=== PATIENT | female | born 1995 | race American Indian/Alaskan Native ===

== ENCOUNTER 2021-07-29 09:52 | Emergency (ER) | payer OTHER ==
--- NOTE | 2021-07-29 10:50 | Emergency Department Report ---
ED Female HPI - General Chief complaint: Urogenital-Female Stated complaint: UTI SX Time Seen by Provider: 07/29/21 10:35 Source: patient Mode of arrival: Ambulatory Limitations: No Limitations - History of Present Illness Initial comments: 25 year old female presents to ED with complaints of vag bleeding, vaginal swelling and itching, and lower abd cramps. Patient states that she was seen at [facility] 2 weeks ago because she was having some low abdominal cramping. It was at that time she found out that she was . She states that they did do a pelvic exam, and checked her for chlamydia and gonorrhea. She states that the only thing they told her was that she had a UTI and that via ultrasound showed about 4 weeks . Patient states that she has completed a course of Keflex but now she noticed that she has been having pain mainly around her clitoris, it feels swollen and now is itchy. She states that she has a clear white discharge. She also reports that she started with bleeding last night mainly when she wipes after urinating. She states that she did put on 1 pad, but there was no blood on the pad. She reports mild lower abdominal cramping. She states that she has not had any sexual intercourse since she was initially evaluated at [facility] 2 weeks ago. She has the same sexual partner. Last menstrual cycle was June 16, 2022. She is G5, P3 Ab1. She states that she is scheduled to see OB for the first time on Saturday but she does not recall the name of the provider she will be seen. MD Complaint: vaginal bleeding, other (clitorus pain/itching and swelling; about 6 weeks preg) -: week(s) (2) - Related Data Previous Rx's Medication Instructions Recorded Last Taken Type Ferrous Sulfate [Ferrous Sulfate 324 mg PO DAILY #30 tab 07/29/21 Unknown Rx 324 MG] Allergies Allergy/AdvReac Type Severity Reaction Status Date / Time No Known Allergies Allergy Unverified 07/29/21 10:16 ED Review of Systems ROS: Stated complaint: UTI SX Other details as noted in HPI Comment: All other systems reviewed and negative Constitutional: denies: chills, diaphoresis, fever, malaise, weakness Eyes: denies: eye pain, eye discharge, vision change ENT: denies: ear pain, throat pain Respiratory: denies: cough, shortness of breath, wheezing Cardiovascular: denies: chest pain, palpitations Gastrointestinal: abdominal pain, other (Abnormal vaginal bleeding). denies: nausea, vomiting, diarrhea, constipation, hematemesis, melena, hematochezia Genitourinary: discharge, other (Clitoral swelling, itching and painful). denies: urgency, dysuria, frequency, hematuria, abnormal menses, dyspareunia Musculoskeletal: denies: back pain, joint swelling, arthralgia Skin: denies: rash, lesions, change in color, change in hair/nails Neurological: denies: headache, weakness, numbness, paresthesias, confusion, abnormal gait, vertigo Psychiatric: denies: anxiety, depression, auditory hallucinations, visual hallucinations, homicidal thoughts Hematological/Lymphatic: denies: easy bleeding, easy bruising, swollen glands ED Past Medical Hx - Past Medical History Previous Medical History?: Yes Additional medical history: Vaginql delivery x 3 - Surgical History Past Surgical History?: No - Medications Home Medications: Home Medications Medication Instructions Recorded Confirmed Last Taken Type Ferrous Sulfate [Ferrous Sulfate 324 mg PO DAILY #30 tab 07/29/21 Unknown Rx 324 MG] ED Physical Exam - General Limitations: No Limitations General appearance: alert, in no apparent distress - Head Head exam: Present: atraumatic, normocephalic, normal inspection - Eye Eye exam: Present: normal appearance, PERRL, EOMI Pupils: Present: normal accommodation - Respiratory Respiratory exam: Present: normal lung sounds bilaterally. Absent: respiratory distress, wheezes, rales, rhonchi - Cardiovascular Cardiovascular Exam: Present: regular rate, normal rhythm, normal heart sounds - GI/Abdominal GI/Abdominal exam: Present: soft. Absent: distended, tenderness, guarding, rebound - External exam: Present: other ([employer] nurse Kalyani was present ; mild dry hyerpigmented mildly excoriated rash noted labia minora, and perineal area). Absent: erythema, swelling, lesions, lacerations, ecchymosis Speculum exam: Present: vaginal discharge (small amt of white thick d/c). Absent: vaginal bleeding, foreign body, tissue, laceration Bi-manual exam: Present: normal bi-manual exam. Absent: cervical motion tendernes, adnexal tenderness, adnexal mass, uterine enlargement, uterine tenderness - Neurological Exam Neurological exam: Present: alert, oriented X3, CN II-XII intact, normal gait - Psychiatric Psychiatric exam: Present: normal affect, normal mood - Skin Skin exam: Present: intact ED Course Vital Signs 07/29/21 07/29/21 10:19 14:57 Temperature 98.8 F Pulse Rate 81 80 Respiratory 20 16 Rate Blood Pressure 123/76 Blood Pressure 127/78 [Right] O2 Sat by Pulse 100 100 Oximetry ED Medical Decision Making - Lab Data Result diagrams: 07/29/21 11:13 07/29/21 11:13 - Radiology Data Radiology results: report reviewed Patient: KAR MALONEY MR#: [id number] : 1995 Acct:[id number] Age/Sex: 25 / F A DM Date: 07/29/21 Loc: ED Attending Dr: Ordering Physician: YULIYA PEÑA Date of Service: 07/29/21 Procedure(s): US OB transvaginal Accession Number(s): [id number] cc: YULIYA PEÑA ULTRASOUND OBSTETRIC INDICATION / CLINICAL INFORMATION: preg/vag bleeding. TECHNIQUE: Transvaginal. COMPARISON: None available. FINDINGS: GESTATIONAL SAC: Well-defined oval shape and intrauterine in location. YOLK SAC: No significant abnormality. EMBRYO/FETUS: No significant abnormality. - [place]-Rump Length = 0.6 cm = 6 weeks, 3 day(s). - Heart Rate, beats per minute (if present) = 126 ADNEXA: No significant abnormality. FREE FLUID: None. ADDITIONAL FINDINGS: None. IMPRESSION: 1. Single, living intrauterine with estimated sonographic age of 6 weeks, 3 day(s) Signer Name: Guzman Ware MD Signed: 07/29/2021 2:37 PM Workstation Name: [id number] Transcribed By: TL Dictated By: Guzman Ware MD Electronically Authenticated By: Guzman Ware MD Signed Date/Time: 07/29/211436 DD/ 34 TD/TT: - Medical Decision Making 1500: CBC shows the patient is anemic with a hemoglobin of 7.7 and hematocrit of 25.8; platelet count was elevated at 764. Her white count was normal. CMP [place] [address] Urinalysis appears more contaminated than a true UTI. And her urine is also positive for yeast Wet prep was positive for yeast Patient's pelvic exam today did not show any bleeding. The cervical os was closed. She had no CMT or adnexal mass or tenderness. OB ultrasound shows single live IUP measuring 6 weeks 3 days without any other acute abnormality. Patient currently resting comfortably. She is not toxic or ill-appearing. She has been observed playing on her phone the entire time she has been in the ER. She has a nonsurgical abdominal exam. Pelvic exam was unremarkable. Discussed all results with patient. She does admit that she has a history of being anemic especially during the time she is . She is not currently on any iron supplements. Patient will be started on ferrous sulfate, and she was given instructions to start using Monistat for her yeast infection. Recommend she keeps her follow-up appointment for Saturday including to monitor her CBC. She understands to return to the ER if your symptoms changes or worsens in any way. Critical care attestation.: If time is entered above; I have spent that time in minutes in the direct care of this critically ill patient, excluding procedure time. ED Disposition Clinical Impression: Yeast vaginitis, Threatened miscarriage, Anemia Disposition: HOME / SELF CARE / HOMELESS Is pt being admited?: No Does the pt Need Aspirin: No Condition: Stable Instructions: Vaginal Yeast Infection, Adult, Threatened Miscarriage, Kyoz-yo-Cctj Additional Instructions: I recommend that you take the ferrous sulfate which is an iron supplement as prescribed. Is important that you take this daily. You may want to increase your water intake and fiber intake while taking this medication as it can cause constipation. I recommend that she do the 7-day Monistat from [id number] for your yeast infection. You can take Tylenol as needed for pain. Keep your appointment with your COMPLIANCE TECHNICIAN next week. Return to the ER if your symptoms changes or worsens in any way. Prescriptions: Ferrous Sulfate [Ferrous Sulfate 324 MG] 324 mg PO DAILY #30 tab Referrals: PRIMARY CARE, [Primary Care Provider] - 3-5 Days Forms: Work/School Release Form(ED) Time of Disposition: 14:50
[2021-07-29 11:41] LABS: Bacteria,Urine 2+ /HPF (Negative); Bilirubin,Urine NEG (Negative); Blood,Urine NEG (Negative); Color,Urine Yellow (Yellow); Mucus,Urine 1+ /HPF; Urobilinogen,Urine < 2.0 mg/dL (<2.0)
[2021-07-29 11:53] LABS: Basophils # (Auto) 0.1 K/mm3 (0.0-0.1); Eosinophils % (Auto) 0.5 % (0.0-4.3); Hematocrit 25.8 % (30.3-42.9); Hemoglobin 7.7 gm/dl (10.1-14.3); Lymphocytes # (Auto) 2.9 K/mm3 (1.2-5.4); Lymphocytes % (Auto) 37.5 % (13.4-35.0); Mean Corpuscular HGB Conc 30 % (30-34); Mean Corpuscular Volume 61 fl (79-97); Monocytes # (Auto) 0.6 K/mm3 (0.0-0.8); Monocytes % (Auto) 7.6 % (0.0-7.3); Platelet Count 764 K/mm3 (140-440); Red Blood Count 4.25 M/mm3 (3.65-5.03); Red Cell Distribution Width 21.5 % (13.2-15.2)
[2021-07-29 12:18] LABS: Alanine Aminotransferase 10 units/L (7-56); Albumin 4.3 g/dL (3.9-5); Blood Urea Nitrogen 10 mg/dL (7-17); Calcium 9.1 mg/dL (8.4-10.2); Hemolysis Index 0
[2021-07-29 12:46] LABS: BUN/Creatinine Ratio 17
--- NOTE | 2021-07-29 14:41 | Ultrasound Report ---
ULTRASOUND OBSTETRIC INDICATION / CLINICAL INFORMATION: preg/vag bleeding. TECHNIQUE: Transvaginal. COMPARISON: None available. FINDINGS: GESTATIONAL SAC: Well-defined oval shape and intrauterine in location. YOLK SAC: No significant abnormality. EMBRYO/FETUS: No significant abnormality. - [place]-Rump Length = 0.6 cm = 6 weeks, 3 day(s). - Heart Rate, beats per minute (if present) = 126 ADNEXA: No significant abnormality. FREE FLUID: None. ADDITIONAL FINDINGS: None. IMPRESSION: 1. Single, living intrauterine with estimated sonographic age of 6 weeks, 3 day(s) Signer Name: Guzman Ware MD Signed: 07/29/2021 2:37 PM Workstation Name: [id number]
[2021-07-29 15:00] VITALS: BP 123/76
== END 2021-07-29 15:00 | disposition home or self-care (01) ==
LOC: ED 09:52
DX: O20.0 Threatened abortion (principal); O23.591 Infection of other part of genital tract in pregnancy, first trimester; B37.3 Candidiasis of vulva and vagina; D64.9 Anemia, unspecified; Z3A.08 8 weeks gestation of pregnancy
CPT/HCPCS: 36415; 76817; 80053; 81001; 84702; 85025; 86900; 86901; 87086; 87210; 99284